=== PATIENT | female | born 1985 | race Caucasian/White ===

== ENCOUNTER → 2018-07-27 | Outpatient (CLI) | payer OTHER ==
--- NOTE | 2018-07-27 15:22 | RADIOLOGY REPORT (SQ) ---
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 LIMITATIONS: None. PROCEDURE: Procedure explained to the patient who gave consent. Urinary bladder catheterized with d irect visual inspection using sterile technique with a 14 [place] Drew catheter. Bladder filled with approximately 300 ml of Isovue-300 contrast via gravity drip. FINDINGS: [employer] film demonstrates a normal bowel gas pattern. Calcified pelvic phleboliths. IUD in the midline pelvis BLADDER: Normal in size and contour. No filling defects. URETHRA: Normal. No obstruction. LEFT URETER: No vesicoureteral reflux. RIGHT URETER: No vesicoureteral reflux. OTHER FINDINGS: No other abnormality noted in soft tissues or bone. POST VOID: Minimal contrast residual. OTHER: No other significant finding. IMPRESSION: Normal Voiding Cystourethrogram. COMMENT: Quality ID 145: Final reports for procedures using fluoroscopy that document radiation exp osure indices, or exposure time and number of fluorographic images (if radiation exposure indices are not available) TECHNICAL DOCUMENTATION: JOB ID: [id number] [employer]- All Rights Reserved Reading location - IP/workstation name: [email or web address]
--- NOTE | 2018-07-27 15:22 | RADIOLOGY REPORT (SQ) ---
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 LIMITATIONS: None. PROCEDURE: Procedure explained to the patient who gave consent. Urinary bladder catheterized with d irect visual inspection using sterile technique with a 14 [place] Drew catheter. Bladder filled with approximately 300 ml of Isovue-300 contrast via gravity drip. FINDINGS: [employer] film demonstrates a normal bowel gas pattern. Calcified pelvic phleboliths. IUD in the midline pelvis BLADDER: Normal in size and contour. No filling defects. URETHRA: Normal. No obstruction. LEFT URETER: No vesicoureteral reflux. RIGHT URETER: No vesicoureteral reflux. OTHER FINDINGS: No other abnormality noted in soft tissues or bone. POST VOID: Minimal contrast residual. OTHER: No other significant finding. IMPRESSION: Normal Voiding Cystourethrogram. COMMENT: Quality ID 145: Final reports for procedures using fluoroscopy that document radiation exp osure indices, or exposure time and number of fluorographic images (if radiation exposure indices are not available) TECHNICAL DOCUMENTATION: JOB ID: [id number] [employer]- All Rights Reserved Reading location - IP/workstation name: [email or web address]
--- NOTE | 2018-07-27 15:27 | RADIOLOGY REPORT (SQ) ---
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 Contrasted imaging performed helical scanning technique and dynamic intravenous contrast injection. Images reviewed with lung, soft tissue, and bone windows. Reconstructed coronal a nd sagittal MPR images reviewed. Delayed images for evaluation of the urinary system also acquired. A ll images stored on PACS. All CT scanners at this facility use dose modulation, iterative reconstruction, and/or weight based d osing when appropriate to reduce radiation dose to as low as reasonably achievable (ALARA). [facility]: Dose Right [facility]: CareDose [facility]: Dose Right [facility]: Teradose 4D [facility]: [employer] CONTRAST TYPE AND DOSE: contrast/concentration: Isovue 350.00 mg/ml; Total Contrast Delivered: 83.0 ml; Total Saline Delivered: 69.0 ml RENAL FUNCTION: None required. The patient is less than 50 years old. RADIATION DOSE: CT Rad equipment meets quality standard of care and radiation dose reduction techniq ues were employed. CTDIvol: 7.9 - 9.2 mGy. DLP: 876 mGy-cm. . LIMITATIONS: None. FINDINGS: NON-CONTRASTED IMAGING: No significant renal or bladder calcifications. 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 Distal to the rig ht iliac vessels, the ureter is decompressed and not well seen. On the left side, a double collectin g system is identified without hydronephrosis or hydroureter. There are calcified granulomas in the spleen and lung bases. Calcified lymph nodes along the lower m ediastinum, benign. POST-CONTRASTED IMAGING: LOWER CHEST: No significant findings. No nodules or infiltrates. LIVER: Normal size. No masses. No dilated ducts. SPLEEN: Normal size. No focal lesions. PANCREAS: No masses. No significant calcifications. No adjacent inflammation or peripancreatic fluid collections. Pancreatic duct not dilated. GALLBLADDER: Gallstones. No inflammatory changes to suggest cholecystitis. ADRENAL GLANDS: No significant masses or asymmetry. RIGHT KIDNEY AND URETER: No solid masses. No significant calcifications. On the delayed images th rough the right kidney, there is mild right hydronephrosis and hydroureter with a duplicated mildly d ilated collecting system down to the level of the right iliac vessels. As the right ureter crosses o jerry the iliac vessels, the right ureter changes to normal caliber. Distal ureter is not opacified wi th IV contrast. LEFT KIDNEY AND URETER: No solid masses. No significant calcifications. No hydronephrosis or hydr oureter. 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 Single ure ter down to the bladder. AORTA AND VESSELS: No aneurysm. No dissection. Renal arteries, SMA, celiac without stenosis. RETROPERITONEUM: No retroperitoneal adenopathy, hemorrhage or masses. BOWEL AND PERITONEAL CAVITY: No masses or inflammatory changes. No free fluid or peritoneal masses. APPENDIX: Normal. PELVIS: No mass. No free fluid. Normal bladder. Normal size uterus and ovaries. ABDOMINAL WALL: No masses. No hernias. BONES: No significant or acute findings. OTHER: No other significant finding. 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 Distal r ight ureter is decompressed. 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 No left hydronephrosis or hydroureter. TECHNICAL DOCUMENTATION: JOB ID: [id number] Quality ID # [id number]: Final reports with documentation of one or more dose reduction techniques (e.g., Au tomated exposure control, adjustment of the mA and/or kV according to patient size, use of iterative reconstruction technique) 2010 [employer]- All Rights Reserved Reading location - IP/workstation name: [email or web address]
== END ==
LOC: RAD 13:29
PROVIDERS: ATTEND Urology
DX: N11.9 Chronic tubulo-interstitial nephritis, unspecified (principal); N39.0 Urinary tract infection, site not specified
CPT/HCPCS: 51600; 74178; 74430